=== PATIENT | male | born 1975 | race Caucasian/White ===

== ENCOUNTER 2020-03-17 15:27 | Inpatient (IN) ==
[2020-03-17] MEDS ORDERED: 0.9 % Sodium Chloride 1,000 ML IV ONE (15:43)
[2020-03-17 16:40] LABS: Basophils % 0.3 %; Eosinophils # 0.1 K/mcL (0.0-0.6); Eosinophils % 0.9 %; Hematocrit 40.8 % (37.5-50.1); Hemoglobin 13.8 g/dL (12.9-16.9); Immature Granulocytes % 0.1 % (0-4); Lymphocytes # 3.8 K/mcL (0.6-4.6); Lymphocytes % 49.9 %; Mean Corpuscular HGB Conc 33.8 g/dL (31.6-35.5); Mean Corpuscular Hemoglobin 32.5 pg (28.0-33.3); Mean Platelet Volume 11.9 fL (9.4-12.4); Monocytes # 0.5 K/mcL (0.0-1.3); Monocytes % 6.5 %; Neutrophils # 3.2 K/mcL (1.6-8.9); Platelet Count 128 K/mcL (140-400); Red Blood Count 4.25 M/mcL (4.19-5.50); Red Cell Distribution Width 12.1 % (11.5-14.5); Segmented Neutrophils % 42.3 %; White Blood Count 7.7 K/mcL (4.3-11.1)
[2020-03-17] MEDS ORDERED: Isovue-370 500 ML BOTTLE IVP ONE (16:47)
[2020-03-17 16:56] LABS: Alanine Aminotransferase 74 Units/L (7-52); Albumin 4.8 g/dL (3.5-5.7); Albumin/Globulin Ratio 1.5 (1.1-2.2); Alkaline Phosphatase 77 Units/L (34-104); Aspartate Amino Transferase 57 Units/L (13-39); BUN/Creatinine Ratio 12 (6-26); Bilirubin,Direct 0.2 mg/dL (0.0-0.2); Bilirubin,Indirect 0.4 mg/dL (0.0-1.0); Bilirubin,Total 0.6 mg/dL (0.3-1.0); Blood Urea Nitrogen 12 mg/dL (6-20); Calcium 10.6 mg/dL (8.6-10.3); Carbon Dioxide 30 mEq/L (23-29); Chloride 101 mEq/L (98-107); Globulin 3.2 g/dL (2.4-3.5); Glucose 107 mg/dL (70-105); Osmolality,Calculated 290 (280-300); Potassium 4.1 mEq/L (3.5-5.1); Sodium 140 mEq/L (136-145); eGFR For African Americans > 60 (> 60); eGFR For Non-African Americans > 60 (> 60)
[2020-03-17 17:22] LABS: C-Reactive Protein < 5 mg/L (Less than 10)
[2020-03-17 18:48] LABS: Bilirubin,Urine Negative (Negative); Blood,Urine Negative (Negative); Clarity,Urine Clear (Clear); Color,Urine Yellow (Yellow); Glucose,Urine (UA) Normal (Normal); Ketones,Urine Negative (Negative); Leukocyte Esterase,Urine Negative (Negative); Nitrite,Urine Negative (Negative); Protein,Urine Negative (Neg-Trace); Urobilinogen,Urine Normal (Normal)
[2020-03-17 19:26] LABS: Troponin I < 0.03 ng/mL (< 0.04)
[2020-03-17] MEDS ORDERED: Acetaminophen 325 MG TABLET PO ONE (19:47)
[2020-03-17] MEDS ORDERED: Naloxone 0.4 MG/ML INJ IVP PRN (22:29)
[2020-03-17] MEDS ORDERED: Nicotine 21 MG PATCH.TD24 TD PRN (22:39)
[2020-03-17] MEDS: 0.9 % Sodium Chloride 1,000 ML IVC SCH (23:15)
[2020-03-18 05:57] LABS: Hematocrit 35.6 % (37.5-50.1); Hemoglobin 12.1 g/dL (12.9-16.9); Immature Platelets 7.8 % (1.1-6.1); Mean Corpuscular Hemoglobin 32.4 pg (28.0-33.3); Mean Corpuscular Volume 95.2 fL (83.0-100.0); Mean Platelet Volume 11.9 fL (9.4-12.4); Red Blood Count 3.74 M/mcL (4.19-5.50); Red Cell Distribution Width 11.9 % (11.5-14.5); White Blood Count 5.5 K/mcL (4.3-11.1)
[2020-03-18 06:11] LABS: BUN/Creatinine Ratio 16 (6-26); Blood Urea Nitrogen 14 mg/dL (6-20); Calcium 8.7 mg/dL (8.6-10.3); Carbon Dioxide 26 mEq/L (23-29); Chloride 108 mEq/L (98-107); Glucose 105 mg/dL (70-105); Osmolality,Calculated 287 (280-300); Potassium 4.1 mEq/L (3.5-5.1); Sodium 138 mEq/L (136-145); eGFR For African Americans > 60 (> 60); eGFR For Non-African Americans > 60 (> 60)
[2020-03-18] MEDS: 0.9 % Sodium Chloride 1,000 ML IVC SCH (06:38)
[2020-03-18] MEDS ORDERED: Ketorolac 15 MG/ML VIAL IVP ONE (19:35)
[2020-03-19 02:20] LABS: Alanine Aminotransferase 54 Units/L (7-52); Albumin 3.5 g/dL (3.5-5.7); Albumin/Globulin Ratio 1.5 (1.1-2.2); Alkaline Phosphatase 54 Units/L (34-104); Aspartate Amino Transferase 44 Units/L (13-39); BUN/Creatinine Ratio 21 (6-26); Bilirubin,Total 0.4 mg/dL (0.3-1.0); Blood Urea Nitrogen 19 mg/dL (6-20); Calcium 8.4 mg/dL (8.6-10.3); Carbon Dioxide 27 mEq/L (23-29); Chloride 107 mEq/L (98-107); Globulin 2.4 g/dL (2.4-3.5); Glucose 103 mg/dL (70-105); Osmolality,Calculated 293 (280-300); Sodium 140 mEq/L (136-145); Total Protein 5.9 g/dL (6.4-8.9); eGFR For African Americans > 60 (> 60); eGFR For Non-African Americans > 60 (> 60)
[2020-03-19 02:41] LABS: Hepatitis B Surface Antigen Nonreactive (Nonreactive)
[2020-03-19 03:11] LABS: Hepatitis A Antibody IgM Nonreactive (Nonreactive)
[2020-03-19 03:12] LABS: Hepatitis B Core IgM Nonreactive (Nonreactive)
[2020-03-19 06:47] LABS: Hepatitis C Virus Antibody Reactive (Nonreactive)
[2020-03-19 14:48] VITALS: BP 125/82
[2020-03-19] MEDS ORDERED: Acetaminophen 325 MG TABLET PO PRN (14:52)
== END 2020-03-19 17:56 | disposition home or self-care (01) | DRG 313 ==
LOC: EMEROOARM 15:27 → 2NENU 15:27 → SUATTDRO 20:17 → 2NENU 21:12 → 3BNU 03-18 18:46
PROVIDERS: ADMIT Family Medicine; ATTEND Internal Medicine

== ENCOUNTER 2020-05-04 17:29 | Inpatient (IN) ==
[2020-05-04] MEDS ORDERED: 0.9 % Sodium Chloride 1,000 ML IVC ONE (18:16)
[2020-05-04 18:35] LABS: INR 1.2; Prothrombin Time 14.1 Seconds (9.4-12.1)
[2020-05-04 18:38] LABS: Activated Partial Thrombo Time 38.4 Seconds (26.0-36.0)
[2020-05-04 18:39] LABS: Basophils % 0.1 %; Eosinophils % 0.2 %; Hematocrit 36.2 % (37.5-50.1); Immature Granulocytes % 0.4 % (0-4); Lymphocytes # 4.1 K/mcL (0.6-4.6); Lymphocytes % 30.6 %; Mean Corpuscular HGB Conc 33.1 g/dL (31.6-35.5); Mean Corpuscular Hemoglobin 31.1 pg (28.0-33.3); Mean Corpuscular Volume 93.8 fL (83.0-100.0); Mean Platelet Volume 10.7 fL (9.4-12.4); Monocytes # 0.8 K/mcL (0.0-1.3); Monocytes % 5.8 %; Neutrophils # 8.4 K/mcL (1.6-8.9); Platelet Count 409 K/mcL (140-400); Red Blood Count 3.86 M/mcL (4.19-5.50); Red Cell Distribution Width 11.9 % (11.5-14.5); Segmented Neutrophils % 62.9 %; White Blood Count 13.4 K/mcL (4.3-11.1)
[2020-05-04 18:51] LABS: Alanine Aminotransferase 24 Units/L (7-52); Albumin 3.7 g/dL (3.5-5.7); Albumin/Globulin Ratio 0.9 (1.1-2.2); Alkaline Phosphatase 108 Units/L (34-104); Aspartate Amino Transferase 30 Units/L (13-39); BUN/Creatinine Ratio 12 (6-26); Bilirubin,Direct 0.1 mg/dL (0.0-0.2); Bilirubin,Indirect 0.3 mg/dL (0.0-1.0); Bilirubin,Total 0.4 mg/dL (0.3-1.0); Blood Urea Nitrogen 8 mg/dL (6-20); Calcium 9.6 mg/dL (8.6-10.3); Carbon Dioxide 25 mEq/L (23-29); Chloride 100 mEq/L (98-107); Glucose 107 mg/dL (70-105); Magnesium 1.8 mg/dL (1.6-2.6); Osmolality,Calculated 279 (280-300); Potassium 3.6 mEq/L (3.5-5.1); Sodium 135 mEq/L (136-145); Total Protein 7.7 g/dL (6.4-8.9); Troponin I < 0.03 ng/mL (< 0.04); eGFR For African Americans > 60 (> 60); eGFR For Non-African Americans > 60 (> 60)
[2020-05-04] MEDS ORDERED: MetroNIDAZOLE 500 MG/100 ML 500 MG/100 ML BAG IVPB ONE (19:08)
[2020-05-04 19:30] LABS: Bilirubin,Urine Negative (Negative); Blood,Urine Negative (Negative); Clarity,Urine Clear (Clear); Color,Urine Colorless (Yellow); Glucose,Urine (UA) Normal (Normal); Ketones,Urine Negative (Negative); Leukocyte Esterase,Urine Negative (Negative); Nitrite,Urine Negative (Negative); PH,Urine 6.5 pH Units (5.0-8.0); Protein,Urine Negative (Neg-Trace); Specific Gravity,Urine 1.005 (1.010-1.025); Urobilinogen,Urine Normal (Normal)
[2020-05-04 23:03] LABS: Amphetamine Screen,Urine Negative ng/mL (Cutoff=1000); Barbiturate Screen,Urine Negative ng/mL (Cutoff=200); Benzodiazepines Screen,Urine Negative ng/mL (Cutoff=200); Cannabinoid Screen,Urine Negative ng/mL (Cutoff = 50); Cocaine Screen,Urine Negative ng/mL (Cutoff= 300); Opiate Screen,Urine Negative ng/mL (Cutoff=300); Phencyclidine Screen,Urine Negative ng/mL (Cutoff=25)
[2020-05-04] MEDS ORDERED: Acetaminophen 325 MG TABLET PO PRN (23:54)
[2020-05-04] MEDS ORDERED: *HR* Promethazine 25 MG/ML VIAL IVP PRN (23:54)
[2020-05-04] MEDS ORDERED: Naloxone 0.4 MG/ML INJ IVP PRN (23:54)
[2020-05-05 00:51] LABS: Basophils % 0.2 %; Eosinophils % 0.3 %; Hematocrit 34.3 % (37.5-50.1); Hemoglobin 11.3 g/dL (12.9-16.9); Immature Granulocytes % 0.3 % (0-4); Lymphocytes # 3.7 K/mcL (0.6-4.6); Lymphocytes % 42.2 %; Mean Corpuscular HGB Conc 32.9 g/dL (31.6-35.5); Mean Corpuscular Hemoglobin 30.8 pg (28.0-33.3); Mean Corpuscular Volume 93.5 fL (83.0-100.0); Mean Platelet Volume 10.8 fL (9.4-12.4); Monocytes # 0.6 K/mcL (0.0-1.3); Monocytes % 7.2 %; Neutrophils # 4.4 K/mcL (1.6-8.9); Platelet Count 309 K/mcL (140-400); Red Blood Count 3.67 M/mcL (4.19-5.50); Red Cell Distribution Width 11.9 % (11.5-14.5); Segmented Neutrophils % 49.8 %; White Blood Count 8.8 K/mcL (4.3-11.1)
[2020-05-05] MEDS: 0.9 % Sodium Chloride 1,000 ML IVC SCH ×2 (00:51→11:37)
[2020-05-05 00:52] LABS: INR 1.2
[2020-05-05 02:58] LABS: BUN/Creatinine Ratio 10 (6-26); Blood Urea Nitrogen 6 mg/dL (6-20); C-Reactive Protein 14 mg/L (Less than 10); Calcium 8.6 mg/dL (8.6-10.3); Carbon Dioxide 23 mEq/L (23-29); Chloride 106 mEq/L (98-107); Glucose 96 mg/dL (70-105); Magnesium 1.8 mg/dL (1.6-2.6); Osmolality,Calculated 281 (280-300); Phosphorous 3.8 mg/dL (2.7-4.5); Potassium 4.6 mEq/L (3.5-5.1); Sodium 137 mEq/L (136-145); eGFR For African Americans > 60 (> 60); eGFR For Non-African Americans > 60 (> 60)
[2020-05-05] MEDS: *HR* Heparin 5,000 UNIT/ML VIAL SQ SCH ×3 (04:49→20:32)
[2020-05-05] MEDS: Cefepime HCl 1,000 MG in Water for inj. (sterile) 10 ML IVP SCH ×2 (04:49→16:57)
[2020-05-05] MEDS: MetroNIDAZOLE 500 MG/100 ML 500 MG/100 ML BAG IVPB SCH ×2 (07:35→14:58)
[2020-05-05] MEDS ORDERED: Cefepime HCl 1,000 MG in 0.9 % Sodium Chloride Mini Bag 100 ML IVPB ONE (19:08)
[2020-05-06] MEDS: MetroNIDAZOLE 500 MG/100 ML 500 MG/100 ML BAG IVPB SCH ×3 (00:10→16:18)
[2020-05-06] MEDS ORDERED: 0.9 % Sodium Chloride 1,000 ML IVC SCH (03:30)
[2020-05-06] MEDS: *HR* Heparin 5,000 UNIT/ML VIAL SQ SCH ×3 (06:23→21:31)
[2020-05-06] MEDS: Cefepime HCl 1,000 MG in Water for inj. (sterile) 10 ML IVP SCH ×2 (06:23→18:02)
[2020-05-06] MEDS ORDERED: Penicillin test 1000 units/0.1 ml TP ONE ×2 (07:00)
[2020-05-06] MEDS ORDERED: methylPREDNISolone 125 MG/2 ML VIAL IVP PRN (07:00)
[2020-05-06] MEDS ORDERED: Famotidine 20 MG/2 ML VIAL IVP PRN (07:00)
[2020-05-06] MEDS ORDERED: 0.9 % Sodium Chloride 10 ML PF VIAL TP ONE (07:00)
[2020-05-06] MEDS ORDERED: Amoxicillin 500 MG CAPSULE PO ONE (07:00)
[2020-05-06] MEDS ORDERED: Penicillin test 1000 units/0.1 ml ID ONE ×3 (07:00)
[2020-05-06] MEDS ORDERED: EPINEPHrine 1 MG/ML VIAL IV PRN (07:00)
[2020-05-06] MEDS ORDERED: Amoxicillin Susp 250 MG/5 ML UDC PO ONE (07:00)
[2020-05-06] MEDS ORDERED: EPINEPHrine 1 MG/ML VIAL IM PRN (07:00)
[2020-05-06 07:05] LABS: Basophils % 0.4 %; Eosinophils % 0.8 %; Hematocrit 31.5 % (37.5-50.1); Hemoglobin 10.2 g/dL (12.9-16.9); Immature Granulocytes % 0.4 % (0-4); Lymphocytes % 39.7 %; Mean Corpuscular HGB Conc 32.4 g/dL (31.6-35.5); Mean Corpuscular Hemoglobin 31.4 pg (28.0-33.3); Mean Corpuscular Volume 96.9 fL (83.0-100.0); Mean Platelet Volume 10.3 fL (9.4-12.4); Monocytes # 0.3 K/mcL (0.0-1.3); Monocytes % 5.4 %; Neutrophils # 2.6 K/mcL (1.6-8.9); Platelet Count 238 K/mcL (140-400); Red Blood Count 3.25 M/mcL (4.19-5.50); Segmented Neutrophils % 53.3 %
[2020-05-06 07:09] LABS: INR 1.3; Prothrombin Time 14.6 Seconds (9.4-12.1)
[2020-05-06 07:26] LABS: BUN/Creatinine Ratio 16 (6-26); Blood Urea Nitrogen 9 mg/dL (6-20); Calcium 8.5 mg/dL (8.6-10.3); Carbon Dioxide 27 mEq/L (23-29); Chloride 108 mEq/L (98-107); Glucose 101 mg/dL (70-105); Osmolality,Calculated 285 (280-300); Sodium 138 mEq/L (136-145); eGFR For African Americans > 60 (> 60); eGFR For Non-African Americans > 60 (> 60)
[2020-05-06] MEDS ORDERED: Ondansetron 4 MG/2 ML VIAL IVP ONE ×2 (08:41→13:01)
[2020-05-06] MEDS ORDERED: *HR* FentaNYL (PF) 100 MCG/2 ML VIAL IVP PRN ×2 (08:41→13:01)
[2020-05-06] MEDS ORDERED: *HR* Succinylcholine 200 MG/10 ML VIAL IVP ONE (12:56)
[2020-05-06] MEDS ORDERED: Lidocaine -MPF 2% 2 ML VIAL ONE (12:56)
[2020-05-06] MEDS ORDERED: *HR* FentaNYL (PF) 100 MCG/2 ML VIAL ONE (12:56)
[2020-05-06] MEDS ORDERED: *HR* Propofol 200 MG/20 ML VIAL IVP ONE (12:57)
[2020-05-06] MEDS ORDERED: *HR* Midazolam HCl 2 MG/2 ML VIAL ONE (13:06)
[2020-05-06] MEDS ORDERED: Ondansetron 4 MG/2 ML VIAL ONE (13:31)
[2020-05-06] MEDS ORDERED: Dexamethasone 4 MG/ML VIAL ONE (13:31)
[2020-05-06 13:51] LABS: Source of Body Fluid RUL BAL
[2020-05-06] MEDS ORDERED: Vancomycin 1,500 MG/265 ML IV.SOLN IVPB SCH (18:00)
[2020-05-06] MEDS: Vancomycin 1,250 MG/262.5 ML IV.SOLN IVPB SCH (18:02)
[2020-05-06 18:44] LABS: Appearance of Body Fluid Hazy (Clear)
[2020-05-06 18:45] LABS: Volume of Body Fluid 20 mL
[2020-05-06] MEDS: Ringers Solution, Lactated 1,000 ML IVC SCH (21:38)
[2020-05-07] MEDS: MetroNIDAZOLE 500 MG/100 ML 500 MG/100 ML BAG IVPB SCH ×4 (00:09→23:48)
[2020-05-07 02:42] LABS: Basophils % 0.2 %; Hematocrit 30.9 % (37.5-50.1); Hemoglobin 10.2 g/dL (12.9-16.9); Immature Granulocytes % 0.2 % (0-4); Lymphocytes # 1.4 K/mcL (0.6-4.6); Lymphocytes % 14.4 %; Mean Corpuscular Hemoglobin 32.1 pg (28.0-33.3); Mean Corpuscular Volume 97.2 fL (83.0-100.0); Mean Platelet Volume 11.5 fL (9.4-12.4); Monocytes # 0.3 K/mcL (0.0-1.3); Monocytes % 3.3 %; Neutrophils # 7.7 K/mcL (1.6-8.9); Platelet Count 245 K/mcL (140-400); Red Blood Count 3.18 M/mcL (4.19-5.50); Red Cell Distribution Width 11.9 % (11.5-14.5); Segmented Neutrophils % 81.9 %
[2020-05-07 02:46] LABS: White Blood Count 9.4 K/mcL (4.3-11.1)
[2020-05-07 03:04] LABS: BUN/Creatinine Ratio 24 (6-26); Blood Urea Nitrogen 16 mg/dL (6-20); Calcium 8.5 mg/dL (8.6-10.3); Carbon Dioxide 24 mEq/L (23-29); Chloride 105 mEq/L (98-107); Glucose 162 mg/dL (70-105); Osmolality,Calculated 291 (280-300); Potassium 4.2 mEq/L (3.5-5.1); Sodium 138 mEq/L (136-145); eGFR For African Americans > 60 (> 60); eGFR For Non-African Americans > 60 (> 60)
[2020-05-07] MEDS: Ringers Solution, Lactated 1,000 ML IVC SCH (04:58)
[2020-05-07] MEDS: Cefepime HCl 1,000 MG in Water for inj. (sterile) 10 ML IVP SCH ×2 (05:35→16:54)
[2020-05-07] MEDS: *HR* Heparin 5,000 UNIT/ML VIAL SQ SCH ×3 (05:36→20:57)
[2020-05-07] MEDS: Vancomycin 1,250 MG/262.5 ML IV.SOLN IVPB SCH (05:36)
[2020-05-07] MEDS: Vancomycin 1,500 MG/265 ML IV.SOLN IVPB SCH (18:14)
[2020-05-07] MEDS: Cefepime HCl 2,000 MG in Water for inj. (sterile) 20 ML IVP SCH (23:47)
[2020-05-08 02:11] LABS: Basophils % 0.5 %; Eosinophils # 0.1 K/mcL (0.0-0.6); Hematocrit 30.6 % (37.5-50.1); Hemoglobin 9.7 g/dL (12.9-16.9); Immature Granulocytes % 0.3 % (0-4); Lymphocytes # 2.8 K/mcL (0.6-4.6); Lymphocytes % 46.3 %; Mean Corpuscular HGB Conc 31.7 g/dL (31.6-35.5); Mean Corpuscular Hemoglobin 31.6 pg (28.0-33.3); Mean Corpuscular Volume 99.7 fL (83.0-100.0); Mean Platelet Volume 11.3 fL (9.4-12.4); Monocytes # 0.3 K/mcL (0.0-1.3); Monocytes % 5.2 %; Neutrophils # 2.9 K/mcL (1.6-8.9); Platelet Count 205 K/mcL (140-400); Red Blood Count 3.07 M/mcL (4.19-5.50); Red Cell Distribution Width 12.3 % (11.5-14.5); Segmented Neutrophils % 46.7 %; White Blood Count 6.1 K/mcL (4.3-11.1)
[2020-05-08 02:26] LABS: BUN/Creatinine Ratio 30 (6-26); Blood Urea Nitrogen 20 mg/dL (6-20); Carbon Dioxide 26 mEq/L (23-29); Chloride 108 mEq/L (98-107); Glucose 138 mg/dL (70-105); Osmolality,Calculated 291 (280-300); Sodium 138 mEq/L (136-145); eGFR For African Americans > 60 (> 60); eGFR For Non-African Americans > 60 (> 60)
[2020-05-08] MEDS: *HR* Heparin 5,000 UNIT/ML VIAL SQ SCH (05:55)
[2020-05-08] MEDS: Vancomycin 1,500 MG/265 ML IV.SOLN IVPB SCH ×2 (05:55→17:31)
[2020-05-08] MEDS: Cefepime HCl 2,000 MG in Water for inj. (sterile) 20 ML IVP SCH ×3 (07:54→23:47)
[2020-05-08] MEDS: MetroNIDAZOLE 500 MG/100 ML 500 MG/100 ML BAG IVPB SCH ×3 (07:54→23:48)
[2020-05-09 06:05] LABS: Hematocrit 32.5 % (37.5-50.1); Hemoglobin 10.2 g/dL (12.9-16.9); Mean Corpuscular HGB Conc 31.4 g/dL (31.6-35.5); Mean Corpuscular Volume 98.8 fL (83.0-100.0); Mean Platelet Volume 11.4 fL (9.4-12.4); Platelet Count 188 K/mcL (140-400); Red Blood Count 3.29 M/mcL (4.19-5.50); Red Cell Distribution Width 12.4 % (11.5-14.5)
[2020-05-09] MEDS: Vancomycin 1,500 MG/265 ML IV.SOLN IVPB SCH ×2 (06:24→18:13)
[2020-05-09 06:25] LABS: BUN/Creatinine Ratio 29 (6-26); Blood Urea Nitrogen 17 mg/dL (6-20); Calcium 8.6 mg/dL (8.6-10.3); Carbon Dioxide 27 mEq/L (23-29); Chloride 105 mEq/L (98-107); Glucose 98 mg/dL (70-105); Osmolality,Calculated 288 (280-300); Sodium 138 mEq/L (136-145); eGFR For African Americans > 60 (> 60); eGFR For Non-African Americans > 60 (> 60)
[2020-05-09] MEDS: MetroNIDAZOLE 500 MG/100 ML 500 MG/100 ML BAG IVPB SCH ×3 (07:53→23:19)
[2020-05-09] MEDS: Cefepime HCl 2,000 MG in Water for inj. (sterile) 20 ML IVP SCH ×3 (07:54→23:19)
[2020-05-10] MEDS: Vancomycin 1,500 MG/265 ML IV.SOLN IVPB SCH (05:04)
[2020-05-10 07:34] VITALS: BP 124/72
[2020-05-10] MEDS: Cefepime HCl 2,000 MG in Water for inj. (sterile) 20 ML IVP SCH (07:39)
[2020-05-10] MEDS: MetroNIDAZOLE 500 MG/100 ML 500 MG/100 ML BAG IVPB SCH (07:39)
== END 2020-05-10 11:37 | disposition home or self-care (01) | DRG 871 ==
LOC: EMEROOARM 17:29 → 2ANU 17:29 → SUATTDRO 22:07 → 2ANU 23:04 → SUATTDRO 05-05 15:53 → 2ANU 05-08 14:36
PROVIDERS: ADMIT Student in an Organized Health Care Education/Training Program; ATTEND Internal Medicine